=== PATIENT | female | born 1985 | race African-American/Black ===

== ENCOUNTER 2019-03-21 06:46 | Emergency (ER) | payer BC ==
[~2019-03-21] VITALS: Ht 170.2 cm; Wt 91.0 kg
[2019-03-21] MEDS ORDERED: DIPHENHYDRAMINE 50MG/ML VIAL IV ONE (07:30)
[2019-03-21] MEDS ORDERED: SODIUM CHLORIDE 0.9% 1,000 ML IV ONE (07:30)
[2019-03-21] MEDS ORDERED: METOCLOPRAMIDE HCL 10MG/2ML VIAL IV ONE (07:30)
[2019-03-21 09:07] VITALS: BP 125/71
== END 2019-03-21 09:18 | disposition home or self-care (01) ==
LOC: ER 06:46
DX: R51 Headache (principal); R03.0 Elevated blood-pressure reading, without diagnosis of hypertension
CPT/HCPCS: 70450; 81025; 96361; 96374; 96375; 99284; J1200; J2765; J7030; Z7610